=== PATIENT | female | born 1960 | race Caucasian/White ===

== ENCOUNTER 2019-05-12 19:00 | Emergency (ER) | payer OTHER ==
[2019-05-12] MEDS ORDERED: methylPREDNISolone Sodium Succinate 125 MG/2 ML SDV IM ONE (20:14)
--- NOTE | 2019-05-12 20:20 | EDM.PDOC ---
ED HPI GENERAL MEDICAL PROBLEM - General Chief Complaint: Allergic Reaction Stated Complaint: ALLERGIC REACTION TO MEDS Time Seen by Provider: 05/12/19 20:10 Source of Information: Reports: Patient, RN Notes Reviewed History Limitations: Reports: No Limitations - History of Present Illness INITIAL COMMENTS - FREE TEXT/NARRATIVE: 58-year-old female presents emergency department today with complaint of rash, she recently had poison [place] exposure unfortunately ended broken down skin developed into a local cellulitis she started on the antibiotics of Keflex which she has been taking she's also been spending some time in the sun she's now developed itchy rash upper extremities and trunk Treatments CHEMICAL SUPERVISOR: Reports: Other Medication(s) Other Treatments CHEMICAL SUPERVISOR: Benadryl - Related Data Allergies Allergy/AdvReac Type Severity Reaction Status Date / Time No Known Allergies Allergy Verified 05/12/19 20:09 Home Meds: Home Meds Clobetasol [Clobetasol Propionate 0.05% Cream] 05/12/19 [History] cephALEXin [Keflex] 05/12/19 [History] Past Medical History - Past Health History Medical/Surgical History: Denies Medical/Surgical History Social & Family History - Tobacco Use Smoking Status *Q: Never Smoker ED ROS ALLERGIC REACTION - Review of Systems Review Of Systems: See Below Constitutional: Reports: No Symptoms Respiratory: Reports: No Symptoms Cardiovascular: Reports: No Symptoms Skin: Reports: Pallor, Pruritis, Erythema ED EXAM GENERAL NO PERIP PULSE - Physical Exam Exam: See Below Text/Narrative:: Examination of integument systems she has hive-like rash family on the chest and upper extremity with multiple its scratch cycles appreciated Exam Limited By: No Limitations General Appearance: Alert, WD/WN, No Apparent Distress Respiratory/Chest: No Respiratory Distress, Lungs Clear, Normal Breath Sounds, No Accessory Muscle Use Cardiovascular: Regular Rate, Rhythm, No Murmur Course - Vital Signs Last Recorded V/S: Last Vital Signs Temp 98.2 F 05/12/19 19:59 Pulse 56 L 05/12/19 19:59 Resp 16 05/12/19 19:59 BP 133/78 05/12/19 19:59 Pulse Ox 99 05/12/19 19:59 - Orders/Labs/Meds Meds: Medications Discontinued Medications Generic Name Dose Route Start Last Admin Trade Name Freq PRN Reason Stop Dose Admin Methylprednisolone Sodium Succinate 125 mg 05/12/19 20:14 Solu-Medrol IM 05/12/19 20:15 ONETIME ONE Departure - Departure Time of Disposition: 20:19 Disposition: Home, Self-Care 01 Condition: Fair Clinical Impression: Allergic reaction Qualifiers: Encounter type: initial encounter Qualified Code(s): T78.40XA - Allergy, unspecified, initial encounter - Discharge Information Referrals: PCP,None [Primary Care Provider] - Additional Instructions: Start a prednisone tomorrow 20 mg once day for the next 5 days, continue using the Benadryl as needed for symptomatic relief. Please follow-up with your primary care provider upon return home, recommend stopping the Keflex if the rash progressively is worse - Assessment/Plan Plan: Assessment Acuity = acute Site and laterality = allergic reaction Etiology = unclear etiology Keflex could be playing a role but she had some exposure today Manifestations = pruritus Location of injury = Home Lab values = none Plan Was given 125 mg Solu-Medrol IM 1 followed by prednisone 20 mg once a day for the next 5 days continue with Benadryl follow-up primary care upon returning home This note was dictated using [employer] voice recognition software please call with any questions on syntax or grammar.
== END 2019-05-12 20:49 | disposition home or self-care (01) ==
LOC: JP.ED 19:00
DX: T78.40XA Allergy, unspecified, initial encounter (principal)
CPT/HCPCS: 96372; 99282; J2930